=== PATIENT | male | born 1935 | race Caucasian/White ===

== ENCOUNTER 2018-05-10 06:29 | Day surgery (SDC) | payer MEDICARE, BC ==
[2018-05-10] MEDS ORDERED: EPINEPHRINE 1 MG/ML AMPUL SQ ONE (06:30)
[2018-05-10] MEDS ORDERED: TETRACAINE HCL 0.5% 15 ML OPTH BTL OPTH ONE (06:30)
[2018-05-10] MEDS ORDERED: LIDOCAINE 2% MDV (20MG/ML) 20ML VIAL IV ONE ×2 (06:30)
[2018-05-10] MEDS ORDERED: NEOMYCIN/POLY./DEXAM OPTH OINT OPTH ONE (06:30)
[2018-05-10] MEDS ORDERED: PROPOFOL 10 MG/ML VIAL IV ONE (06:30)
[2018-05-10] MEDS ORDERED: CIPROFLOXACIN HCL 0.0015 GM, PHENYLEPHRINE HCL 0.05 GM, KETOROLAC TROMETHAMINE 0.000625 GM MC ONE ×5 (13:15)
--- NOTE | 2018-05-10 17:10 | OP NOTE CHAMES ---
DATE OF PROCEDURE: 05/10/18 PREOPERATIVE DIAGNOSIS: Nuclear sclerotic and posterior subcapsular cataract, right eye. POSTOPERATIVE DIAGNOSIS: Nuclear sclerotic and posterior subcapsular cataract, right eye. OPERATION: Phacoemulsification of cataractous lens with implantation of intraocular lens. LENS IMPLANT USED: Wilburn Model PCB00 + 19.5 diopters. COMPLICATIONS: None. PROCEDURE IN DETAIL: Following a retrobulbar and facial block, the patient was prepped and draped in the usual fashion for eye surgery. A lid speculum was placed in the right eye after which a 2.4 mm tunnel wound was placed at the temporal limbus and dissected into clear cornea. A paracentesis was placed at 2 oclock hours to the left and right of the initial incision and the chamber deepened with Viscoelastic. The keratome was then used to enter the anterior chamber after which the continuous circular capsulorrhexis was accomplished without difficulty using a bent needle and a Utrata forceps. Hydrodissection and hydrodelineation of the lens was performed after which the nucleus of the lens was removed using the Phaco handpiece in the fawddy-[id number]-[id number] technique. The residual cortical material was irrigated and aspirated from the eye after which the bag and chamber were re-examined. The bag was re-inflated with Viscoelastic and the intraocular lens injected into the capsular bag where it centered well. The Viscoelastic was then copiously irrigated and aspirated from the eye after which the temporal tunnel wound and paracentesis were hydrated and the wounds were examined. They were noted to be watertight. The lid speculum was removed from the eye and the eye patched and shielded. The patient was transferred to the recovery room in satisfactory condition and given an appointment to be reexamined in the clinic later today or as directed by Dr. Crenshaw. JOB NUMBER: [id number] [facility]
== END 2018-05-10 09:10 | disposition home or self-care (01) ==
LOC: SUR 06:29
PROVIDERS: ATTEND Ophthalmology
DX: H25.11 Age-related nuclear cataract, right eye (principal); I10 Essential (primary) hypertension; Z79.01 Long term (current) use of anticoagulants
CPT/HCPCS: J0171

== ENCOUNTER 2018-06-07 06:34 | Day surgery (SDC) | payer MEDICARE, BC ==
[2018-06-07] MEDS ORDERED: LIDOCAINE 2% MDV (20MG/ML) 20ML VIAL IV ONE ×2 (06:35)
[2018-06-07] MEDS ORDERED: NEOMYCIN/POLY./DEXAM OPTH OINT OPTH ONE (06:35)
[2018-06-07] MEDS ORDERED: PROPOFOL 10 MG/ML VIAL IV ONE (06:35)
[2018-06-07] MEDS ORDERED: EPINEPHRINE 1 MG/ML AMPUL SQ ONE (06:35)
[2018-06-07] MEDS ORDERED: TETRACAINE HCL 0.5% 15 ML OPTH BTL OPTH ONE (06:35)
[2018-06-07] MEDS ORDERED: CIPROFLOXACIN HCL 0.0015 GM, PHENYLEPHRINE HCL 0.05 GM, KETOROLAC TROMETHAMINE 0.000625 GM MC ONE ×5 (14:00)
--- NOTE | 2018-06-07 15:49 | OP NOTE CHAMES ---
DATE OF PROCEDURE: 06/07/18 PREOPERATIVE DIAGNOSIS: Nuclear sclerotic cataract, left eye. POSTOPERATIVE DIAGNOSIS: Nuclear sclerotic cataract, left eye. OPERATION: Phacoemulsification of cataractous lens with implantation of intraocular lens. LENS IMPLANT USED: Wilburn Model PCB00 + 20.0 diopters. COMPLICATIONS: None. PROCEDURE IN DETAIL: Following a retrobulbar and facial block, the patient was prepped and draped in the usual fashion for eye surgery. A lid speculum was placed in the left eye after which a 2.4 mm tunnel wound was placed at the temporal limbus and dissected into clear cornea. A paracentesis was placed at 2 oclock hours to the left and right of the initial incision and the chamber deepened with Viscoelastic. The keratome was then used to enter the anterior chamber after which the continuous circular capsulorrhexis was accomplished without difficulty using a bent needle and a Utrata forceps. Hydrodissection and hydrodelineation of the lens was performed after which the nucleus of the lens was removed using the Phaco handpiece in the ovsdhu-[id number]-[id number] technique. The residual cortical material was irrigated and aspirated from the eye after which the bag and chamber were re-examined. The bag was re-inflated with Viscoelastic and the intraocular lens injected into the capsular bag where it centered well. The Viscoelastic was then copiously irrigated and aspirated from the eye after which the temporal tunnel wound and paracentesis were hydrated and the wounds were examined. They were noted to be watertight. The lid speculum was removed from the eye and the eye patched and shielded. The patient was transferred to the recovery room in satisfactory condition and given an appointment to be reexamined in the clinic later today or as directed by Dr. Crenshaw. JOB NUMBER: [id number] [facility]
== END 2018-06-07 09:25 | disposition home or self-care (01) ==
LOC: SUR 06:34
PROVIDERS: ATTEND Ophthalmology
DX: H25.12 Age-related nuclear cataract, left eye (principal); I10 Essential (primary) hypertension; I48.91 Unspecified atrial fibrillation; Z79.01 Long term (current) use of anticoagulants
CPT/HCPCS: J0171

== ENCOUNTER 2019-04-09 19:32 | Emergency (ER) | payer MEDICARE, BC ==
[2019-04-09] MEDS ORDERED: SIMETH/SOD BICARB/CIT AC EFF PKT PO ONE (19:52)
[2019-04-09] MEDS ORDERED: GLUCAGON 1 MG/VIAL IV ONE (19:56)
--- NOTE | 2019-04-09 20:13 | Emergency Department Record ---
History of Present Illness - General Chief complaint: ENT Stated complaint: DIFFICULTY IN SWALLOWING Time Seen by Provider: 04/09/19 19:51 Source: Patient Mode of Arrival: Ambulatory Limitations: No limitations - History of Present Illness Initial comments: pt has had chicken stuck for 5 hours in his esophagus. he is unable to swallow his saliva. he has never had this happen before MD complaint: Foreign body, Other Onset/Timin -: Days(s) Severity: Moderate Consistency: Constant Improves with: None Worsens with: None - Related Data Allergies Allergy/AdvReac Type Severity Reaction Status Date / Time NO KNOWN DRUG ALLERGY Allergy Uncoded 03/03/14 10:00 Travel Screening - Travel/Exposure Within Last 30 Days Have you traveled within the last 30 days?: No Review of Systems Reviewed: No additional complaints except as noted below Constitutional: Reports: As per HPI. Denies: Chills, Fever, Malaise, Night sweats, Weakness, Weight change Eyes: Reports: As per HPI. Denies: Eye discharge, Eye pain, Photophobia, Vision change ENT: Reports: As per HPI. Denies: Congestion, Dental pain, Ear pain, Epistaxis, Hearing loss, Throat pain Respiratory: Reports: As per HPI. Denies: Cough, Dyspnea, Hemoptysis, Stridor, Wheezes Cardiovascular: Reports: As per HPI. Denies: Arrhythmia, Chest pain, Dyspnea on exertion, Edema, Murmurs, Orthopnea, Palpitations, Paroxysmal nocturnal dyspnea, Rheumatic Fever, Syncope Endocrine: Reports: As per HPI. Denies: Fatigue, Heat or cold intolerance, Polydipsia, Polyuria Gastrointestinal: Reports: As per HPI. Denies: Abdominal pain, Constipation, Diarrhea, Hematemesis, Hematochezia, Melena, Nausea, Vomiting Genitourinary: Reports: As per HPI. Denies: Dysuria, Frequency, Hematuria, Incontinence, Retention, Testicular pain, Testicular mass, Urgency Musculoskeletal: Reports: As per HPI. Denies: Arthralgia, Back pain, Gout, Joint swelling, Myalgia, Neck pain Skin: Reports: As per HPI. Denies: Bruising, Change in color, Change in hair/nails, Lesions, Pruritus, Rash Neurological: Reports: As per HPI. Denies: Abnormal gait, Confusion, Headache, Numbness, Paresthesias, Seizure, Tingling, Tremors, Vertigo, Weakness Psychiatric: Reports: As per HPI. Denies: Anxiety, Auditory hallucinations, Depression, Homicidal thoughts, Suicidal thoughts, Visual hallucinations Hematological/Lymphatic: Reports: As per HPI. Denies: Anemia, Blood Clots, Easy bleeding, Easy bruising, Swollen glands Past Medical History - SOCIAL HISTORY Smoking Status: Never smoker Alcohol Use: None Drug Use: None - RESPIRATORY Hx Respiratory Disorders: Yes Hx Asthma: Yes (uses inhaler fair control no recent hospitalizations) Hx Sleep Apnea: Yes Hx of CPAP: Yes - CARDIOVASCULAR Hx Cardio Disorders: Yes Hx Abnormal EKG: Yes Hx Hypertension: Yes (controlled with meds) Hx Irregular Heartbeat: Yes (afib last summer due to dehydration no reoccurance on thinners) Comment:: high cholesterol - NEURO Hx Neuro Disorders: No - GI Hx GI Disorders: No - Hx Genitourinary Disorders: No - ENDOCRINE Hx Endocrine Disorders: Yes Hx Thyroid Disease: Yes (hypo on meds) - MUSCULOSKELETAL Hx Musculoskeletal Disorders: Yes Hx Arthritis: Yes - PSYCH Hx Psych Problems: Yes Hx Anxiety: Yes Hx Depression: Yes - HEMATOLOGY/ONCOLOGY Hx Hematology/Oncology Disorders: Yes Hx Bruising: Yes (on thinner) Hx Cancer: Yes (BCC) Family Medical History Any Significant Family History?: No Physical Exam - General General Appearance: Alert, Oriented x3, Cooperative, Mild distress - Head Head exam: Normal inspection - Eye Eye exam: Normal appearance, PERRL, EOMI Pupils: Normal accommodation - ENT ENT exam: Normal exam, Mucous membranes moist, Normal external ear exam, Normal orophraynx Ear exam: Normal external inspection. negative: External canal tenderness Nasal Exam: Normal inspection. negative: Discharge, Sinus tenderness Mouth exam: Normal external inspection, Tongue normal Teeth exam: Normal inspection. negative: Dental caries Throat exam: Normal inspection. negative: Tonsillar erythema, Tonsillar exudate - Neck Neck exam: Normal inspection, Full ROM. negative: Tenderness - Respiratory Respiratory exam: Normal lung sounds bilaterally. negative: Respiratory distress - Cardiovascular Cardiovascular Exam: Regular rate, Normal rhythm, Normal heart sounds - GI/Abdominal GI/Abdominal exam: Soft, Normal bowel sounds. negative: Tenderness - Rectal Rectal exam: Deferred - exam: Deferred - Extremities Extremities exam: Normal inspection, Full ROM, Normal capillary refill. negative: Tenderness - Back Back exam: Reports: Normal inspection, Full ROM. Denies: Muscle spasm, Rash noted, Tenderness - Neurological Neurological exam: Alert, CN II-XII intact, Normal gait, Oriented X3 - Psychiatric Psychiatric exam: Normal affect, Normal mood - Skin Skin exam: Dry, Intact, Normal color, Warm Course Vital Signs 04/09/19 19:39 Temperature 97.8 F Pulse Rate [ 62 Pulse Ox Probe] Respiratory 24 Rate Blood Pressure 200/93 [Left Arm] Pulse Ox 96 - Reevaluation(s) Reevaluation #1: 04/09/19 21:14 pt feels 100% better. chicken passed. hes geno to swallow liquids Disposition Disposition: Discharge Clinical Impression: Esophageal obstruction Disposition: Home, Self-Care Condition: (1) Good Instructions: Esophageal Spasm (ED) Additional Instructions: follow up with family doctor and with dr crabtree. return sooner if worse. take small bites and chew well. Referrals: KAJAL CRABTREE [DOCTOR OF OSTEOPATH] - [facility] [Provider Group] Forms: Patient Portal Access Quality - Quality Measures Quality Measures: N/A - Blood Pressure Screening Does Patient Have Any of the Following: No Blood Pressure Classification: Hypertensive Reading Systolic Measurement: 200 Diastolic Measurement: 93 Screening for High Blood Pressure: < First Hypertensive BP, F/U Documented > [G8950] First Hypertensive Follow-up Interventions: Follow-up with rescreen GT 1 day and LT 4 weeks.
== END 2019-04-09 21:46 | disposition home or self-care (01) ==
LOC: ER 19:32
DX: K22.2 Esophageal obstruction (principal); I10 Essential (primary) hypertension
CPT/HCPCS: 96374; 99284; J1610

== ENCOUNTER 2019-04-22 11:04 | Day surgery (SDC) | payer MEDICARE, BC ==
[2019-04-22] MEDS ORDERED: LIDOCAINE 2% MDV (20MG/ML) 20ML VIAL IV ONE (11:05)
[2019-04-22] MEDS ORDERED: PROPOFOL 10 MG/ML VIAL IV ONE (11:05)
--- NOTE | 2019-04-24 07:50 | Operative Note ---
OPERATION: ESOPHAGOGASTRODUODENOSCOPY. INDICATION: Episode of solid food dysphagia. The patient was in the emergency department after swallowing chicken which was lodged in what he felt like was the mid esophagus. He had treatment with possibly Quick Fizz although it was not well documented on the record on the record. He did state he drank something in the emergency room which pushed the chicken down. He presents today for further evaluation. He has not had problems since that time or prior to that time, he claims. He does not have record of previous endoscopy. ANESTHESIA: Intravenous sedation was administered by the department of anesthesiology and included Diprivan titrated to effect. PROCEDURE: Following informed consent from this alert individual, including a discussion of the risks and benefits of the procedure and an opportunity for the patient to ask questions, the patient was in the left lateral decubitus position. The Olympus TRO380 video endoscope was inserted into the esophagus with slight resistance. The upper esophageal mechanism seemed to be under some high pressure. The esophagus itself, however, was free from stricture formation, ulcerations, or erosions. The stomach was entered and found to have some mild diffuse gastritis. No ulcerations or erosions were seen. The pylorus was patent. The duodenal bulb, sweep and descending duodenum were examined in a serial fashion and found to be normal. The endoscope was then withdrawn back into the body of the stomach. Retroflexion accomplished following air insufflation failed to demonstrate any additional changes. The endoscope was then straightened and withdrawn back through a widely patent esophagus. Again the upper esophageal sphincter mechanism perhaps was tighter than usual but no obstruction noted. The instrument was removed. The patient tolerated the procedure well and was returned to the recovery area in stable condition. IMPRESSION: 1. Mild diffuse gastritis. 2. Otherwise unremarkable endoscopy with the exception of a possible high pressure upper esophageal sphincter. RECOMMENDATION: The patient was advised to chew his food well and keep liquids with him when eating. He has a hard time guzzling liquids and perhaps this is due to the UES mechanics. He was asked to call me if problems return. He will otherwise be following up with Dr. Fernández. If he has difficulty with swallowing from an oropharyngeal standpoint, perhaps a triple-phase deglutition study would be beneficial. As always, thank you for allowing me to participate in the care of your patient. CC: NATALIA FERNÁNDEZ MD, FACP [facility]
== END 2019-04-22 13:32 | disposition home or self-care (01) ==
LOC: HOP 11:04
PROVIDERS: ATTEND Internal Medicine Gastroenterology
DX: R13.10 Dysphagia, unspecified (principal); K29.70 Gastritis, unspecified, without bleeding; Z79.01 Long term (current) use of anticoagulants; I10 Essential (primary) hypertension; E78.00 Pure hypercholesterolemia, unspecified; E03.9 Hypothyroidism, unspecified; M19.90 Unspecified osteoarthritis, unspecified site

== ENCOUNTER 2019-10-30 10:46 | Emergency (ER) | payer MEDICARE, BC ==
--- NOTE | 2019-10-30 10:59 | Emergency Department Record ---
History of Present Illness - General Chief complaint: Nosebleed/epistaxis Stated complaint: NOSE BLEED Time Seen by Provider: 10/30/19 10:50 Source: Patient Mode of Arrival: Ambulatory - History of Present Illness Initial comments: nose bleed which started 30 minutes prior to arrival and stopped for a short while and he is on eliquis for atrial fib. No active bleeding in posterior throat and from the right nostril. - Related Data Allergies Allergy/AdvReac Type Severity Reaction Status Date / Time NO KNOWN DRUG ALLERGY Allergy no Uncoded 10/30/19 10:58 allergies Review of Systems Reviewed: No additional complaints except as noted below Constitutional: Reports: As per HPI. Denies: Chills, Fever, Malaise, Night sweats, Weakness, Weight change Eyes: Reports: As per HPI. Denies: Eye discharge, Eye pain, Photophobia, Vision change ENT: Reports: As per HPI, Epistaxis (right nostril). Denies: Congestion, Dental pain, Ear pain, Hearing loss, Throat pain Respiratory: Reports: As per HPI. Denies: Cough, Dyspnea, Hemoptysis, Stridor, Wheezes Cardiovascular: Reports: As per HPI. Denies: Arrhythmia, Chest pain, Dyspnea on exertion, Edema, Murmurs, Orthopnea, Palpitations, Paroxysmal nocturnal dyspnea, Rheumatic Fever, Syncope Endocrine: Reports: As per HPI. Denies: Fatigue, Heat or cold intolerance, Polydipsia, Polyuria Gastrointestinal: Reports: As per HPI. Denies: Abdominal pain, Constipation, Diarrhea, Hematemesis, Hematochezia, Melena, Nausea, Vomiting Genitourinary: Reports: As per HPI. Denies: Dysuria, Frequency, Hematuria, Incontinence, Retention, Testicular pain, Testicular mass, Urgency Musculoskeletal: Reports: As per HPI. Denies: Arthralgia, Back pain, Gout, Joint swelling, Myalgia, Neck pain Skin: Reports: As per HPI. Denies: Bruising, Change in color, Change in hair/nails, Lesions, Pruritus, Rash Neurological: Reports: As per HPI. Denies: Abnormal gait, Confusion, Headache, Numbness, Paresthesias, Seizure, Tingling, Tremors, Vertigo, Weakness Psychiatric: Reports: As per HPI. Denies: Anxiety, Auditory hallucinations, Depression, Homicidal thoughts, Suicidal thoughts, Visual hallucinations Hematological/Lymphatic: Reports: As per HPI. Denies: Anemia, Blood Clots, Easy bleeding, Easy bruising, Swollen glands Past Medical History - SOCIAL HISTORY Smoking Status: Never smoker - RESPIRATORY Hx Asthma: Yes (uses inhaler fair control no recent hospitalizations) - CARDIOVASCULAR Hx Cardio Disorders: Yes Hx Abnormal EKG: Yes Hx Hypertension: Yes (controlled with meds) Hx Irregular Heartbeat: Yes (afib last summer due to dehydration no reoccurance on thinners) Comment:: high cholesterol - NEURO Hx Neuro Disorders: No - GI Hx GI Disorders: No - Hx Genitourinary Disorders: No - ENDOCRINE Hx Endocrine Disorders: Yes Hx Thyroid Disease: Yes (hypo on meds) - MUSCULOSKELETAL Hx Musculoskeletal Disorders: Yes Hx Arthritis: Yes - PSYCH Hx Psych Problems: Yes Hx Anxiety: Yes Hx Depression: Yes - HEMATOLOGY/ONCOLOGY Hx Hematology/Oncology Disorders: Yes Hx Bruising: Yes (on thinner) Hx Cancer: Yes (BCC) Physical Exam - General General Appearance: Alert, Oriented x3, Cooperative, No acute distress - Head Head exam: Normal inspection - Eye Eye exam: Normal appearance, PERRL Pupils: Normal accommodation - ENT ENT exam: Normal exam, Mucous membranes moist, Normal external ear exam, Normal orophraynx, TM's normal bilaterally Ear exam: Normal external inspection. negative: External canal tenderness Nasal Exam: Dried blood. negative: Discharge, Sinus tenderness Mouth exam: Normal external inspection, Tongue normal Teeth exam: Normal inspection. negative: Dental caries Throat exam: Normal inspection. negative: Tonsillar erythema, Tonsillar exudate - Neck Neck exam: Normal inspection, Full ROM. negative: Tenderness - Respiratory Respiratory exam: Normal lung sounds bilaterally. negative: Respiratory distress - Cardiovascular Cardiovascular Exam: Regular rate, Normal rhythm, Normal heart sounds - GI/Abdominal GI/Abdominal exam: Soft, Normal bowel sounds. negative: Tenderness - Rectal Rectal exam: Deferred - exam: Deferred - Extremities Extremities exam: Normal inspection, Full ROM, Normal capillary refill. neg ative: Tenderness - Back Back exam: Reports: Normal inspection, Full ROM. Denies: Muscle spasm, Rash noted, Tenderness - Neurological Neurological exam: Alert, Normal gait, Oriented X3, Reflexes normal - Psychiatric Psychiatric exam: Normal affect, Normal mood - Skin Skin exam: Dry, Intact, Normal color, Warm Course - Reevaluation(s) Reevaluation #1: bleeding stopped after clots blown out of the nose and TLE placed in nostril 10/30/19 12:22 Reevaluation #2: silivenitrate cautery of kesselbach's plexus 10/30/19 12:22 10/30/19 13:05 Reevaluation #3: bleeding stopped 10/30/19 13:05 Medical Decision Making - Lab Data Result diagrams: 10/30/19 11:10 Disposition Clinical Impression: Epistaxis Disposition: Home, Self-Care Condition: (1) Good Instructions: Nosebleed (ED) Additional Instructions: follow up with Dr Fernández in 10 days sooner if worse or return to ED stop elliquis and no asapirin till he sees Dr Fernández nose bleed precautions no heavy lifting Forms: Patient Portal Access Time of Disposition: 13:05 Quality - Quality Measures Quality Measures: N/A - Blood Pressure Screening Does Patient Have Any of the Following: No, Active Dx of HTN Blood Pressure Classification: Hypertensive Reading Systolic Measurement: 139 Diastolic Measurement: 109 Screening for High Blood Pressure: Patient Exclusion, Hx of HTN [G9744]
[2019-10-30 11:23] LABS: BASO % 0.3 % (0-6); EOS % 2.2 % (0-6); GRAN % 44.1 % (47-80); HEMATOCRIT 36.7 % (42.0-52.0); HEMOGLOBIN 11.4 gm/dl (14.0-18.0); MEAN CELL VOLUME 95.6 fl (81-97); MEAN CORPUSCULAR HEMOGLOBIN 29.6 pg (27-33); MEAN CORPUSCULAR HGB CONC 31.1 g/dl (32-36); MEAN PLATELET VOLUME 9.3 fl (7.4-10.4); MONO % 12.4 % (0-9); PLATELET COUNT 247 K/uL (130-400); RED BLOOD COUNT 3.84 M/uL (4.40-5.70); RED CELL DISTRIBUTION WIDTH 14.3 % (11.5-14.5); WHITE BLOOD COUNT W/O DIFF 6.4 K/uL (4.2-12.2)
[2019-10-30] MEDS ORDERED: TOPICAL LIDOCAINE W/ EPI 5 ML TOP ONE (12:27)
== END 2019-10-30 13:38 | disposition home or self-care (01) ==
LOC: ER 10:46
DX: R04.0 Epistaxis (principal); I48.91 Unspecified atrial fibrillation; Z79.01 Long term (current) use of anticoagulants; I10 Essential (primary) hypertension
CPT/HCPCS: 30901; 85025; 85730; 99284